=== PATIENT | male | born 1990 | race Two or more races ===

== ENCOUNTER 2023-12-15 15:09 | Emergency (ER) | payer OTHER, SELFPAY ==
--- NOTE | ~2023-12-15 | XR_ITS ---
EXAMINATION: XR tibia fibula LT 2V DATE: 12/15/2023 16:11 INDICATION: Left lower leg injury. TECHNIQUE: 2 views of left tibia and fibula were obtained. COMPARISON: None. FINDINGS: There is a transverse fracture of distal tibial diaphysis. The distal fracture fragment dem onstrates 5 mm anterior displacement and 8 degrees posterior angulation. There is an oblique fracture of distal fibular diaphysis. The distal fracture fragment demonstrates one shaft width medial displa cement and 11 degrees posterior angulation. IMPRESSION: 1. Fractures of distal tibial and fibular diaphyses. Reviewed, dictated and finalized at location A.
[2023-12-15 15:13] VITALS: BP 131/84; PULSE 81; RESP 18; O2SAT 100
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
[2023-12-15] MEDS: TETANUS,DIPHTHERIA,AC PERTUSSIS ADULT (0.5 ML) BOOSTRIX IM (16:37)
[2023-12-15] MEDS: ceFAZolin SODIUM 1 GM VIAL IV PUSH (16:37)
[2023-12-15] MEDS: ONDANSETRON INJ 4 MG/2 ML VIAL IV PUSH (16:38)
[2023-12-15] MEDS: MORPHINE SULFATE (*CRX) 4 MG/ML INJ IV PUSH (16:38)
[2023-12-15] MEDS: HYDROmorphone HCL INJ (*CRX) 1 MG/ML SYR IV PUSH (18:22)
[2023-12-15 18:39] VITALS: BP 129/70; PULSE 84; RESP 18; O2SAT 98
== END 2023-12-15 18:57 | disposition short-term general hospital (02) ==
PROVIDERS: Emergency Provider Physician Assistant
DX: S82.222C Displaced transverse fracture of shaft of left tibia, initial encounter for open fracture type IIIA, IIIB, or IIIC (principal); S82.432 Displaced oblique fracture of shaft of left fibula; Z23 Encounter for immunization; W20.8XXA Other cause of strike by thrown, projected or falling object, initial encounter
CPT/HCPCS: 29505; 73590; 90471; 90715; 96374; 96375; 99285; J0690; J1171; J2270; J2405